=== PATIENT | female | born 1945 | race Hispanic/Latino ===

== ENCOUNTER 2016-06-01 17:47 | Emergency (ER) | payer MEDICARE ==
--- NOTE | 2016-06-01 19:43 | Emergency Department Report ---
HPI - General Chief Complaint: Fall Time Seen by Provider: 06/01/16 19:21 - HPI HPI: Room 25 The patient is a 70-year-old female presenting with a chief complaint of fall. The patient lives at home alone but has a [employer] alert necklace. The patient states today while standing up she continued to fall forward and fell to the ground. Patient complains of "lumps" in the back of her head. Patient denies loss of consciousness. Patient complains of a mild headache. Patient denies any other pain outside of her head. Patient states she feels a little sleepy. The patient gives her headache score of 4/10. The patient's daughter states she received a call from [employer] stating that the patient had fallen Location: Head Duration: Constant times today Quality: Headache Severity: 4/10 Modifying factors: [see above] Context: [see above] Mode of transportation: [not driving] ED Past Medical Hx - Past Medical History Previous Medical History?: Yes Hx Hypertension: Yes Hx Psychiatric Treatment: Yes (depression) Hx COPD: Yes Additional medical history: GERD, peripheral vascular disease - Surgical History Past Surgical History?: No Additional Surgical History: Abdominal vascular stenting. Cataract surgery, retinal tear repair, hysterectomy - Family History Family history: no significant - Social History Smoking Status: Former Smoker (none since 2008) Substance Use Type: None - Medications Home Medications: Home Medications Medication Instructions Recorded Confirmed Last Taken Type ALBUTEROL Inhaler [Proair] 2 puff IH QID PRN 06/01/16 06/01/16 Unknown History ALBUTEROL NEB's [Proventil] 2.5 mg IH TID PRN 06/01/16 06/01/16 Unknown History ALPRAZolam [Xanax TAB] 1 mg PO BID 06/01/16 06/01/16 Unknown History ARIPiprazole [Abilify TAB] 20 mg PO DAILY 06/01/16 06/01/16 Unknown History AtorvaSTATin [Lipitor] 40 mg PO QHS 06/01/16 06/01/16 Unknown History Cholecalciferol Vit D3 [Vitamin D3] 1,000 unit PO QDAY 06/01/16 06/01/16 Unknown History Escitalopram [Lexapro] 20 mg PO DAILY 06/01/16 06/01/16 Unknown History Fluticasone/Salmeterol [Advair 1 puff IH BID 06/01/16 06/01/16 Unknown History Diskus 250-50 mcg] Furosemide [Lasix TAB] 40 mg PO QDAY 06/01/16 06/01/16 Unknown History Gabapentin [Neurontin] 600 mg PO QPM 06/01/16 06/01/16 Unknown History HYDROcodone/APAP 10-325 [[place] 1 each PO BID PRN 06/01/16 06/01/16 Unknown History 10/325] Levothyroxine [Synthroid] 75 mcg PO QAM 06/01/16 06/01/16 Unknown History Meclizine [Antivert] 25 mg PO TID PRN #20 tablet 06/01/16 Unknown Rx Metoprolol [Lopressor] 100 mg PO DAILY 06/01/16 06/01/16 Unknown History Multivitamin Tab [Multiple Vitamin 1 each PO QDAY 06/01/16 06/01/16 Unknown History TAB (Theragran)] Omeprazole Magnesium [PriLOSEC Otc] 20 mg PO QDAY 06/01/16 06/01/16 Unknown History Oxybutynin [Ditropan] 5 mg PO TID 06/01/16 06/01/16 Unknown History Potassium Chloride [Klor-Con 10] 10 meq PO DAILY 06/01/16 06/01/16 Unknown History Quetiapine Fumarate [Seroquel] 100 mg PO QHS 06/01/16 06/01/16 Unknown History ED Review of Systems ROS: Stated complaint: FALL Other details as noted in HPI Comment: All other systems reviewed and negative Constitutional: denies: chills, fever Eyes: denies: eye pain, eye discharge, vision change ENT: denies: ear pain, throat pain Respiratory: denies: cough, shortness of breath, wheezing Cardiovascular: denies: chest pain, palpitations Endocrine: no symptoms reported Gastrointestinal: denies: abdominal pain, nausea, diarrhea Genitourinary: denies: urgency, dysuria, discharge Musculoskeletal: denies: back pain, joint swelling, arthralgia Skin: denies: rash, lesions Neurological: headache Psychiatric: denies: anxiety, depression Hematological/Lymphatic: denies: easy bleeding, easy bruising Physical Exam - Physical Exam Vital Signs: Vital Signs 06/01/16 06/01/16 18:25 19:12 Temperature 98.3 F Pulse Rate 67 66 Respiratory 18 16 Rate Blood Pressure 133/74 122/49 [Left] O2 Sat by Pulse 99 96 Oximetry Physical Exam: GENERAL: The patient is well-developed well-nourished female lying on stretcher not appearing to be in acute distress. [] HEENT: Normocephalic. Atraumatic. Extraocular motions are intact. Patient has moist mucous membranes. NECK: Supple. Trachea midline. No axial step off CHEST/LUNGS: Clear to auscultation. There is no respiratory distress noted. HEART/CARDIOVASCULAR: Regular. There is no tachycardia. There is no gallop rub or murmur. ABDOMEN: Abdomen is soft, with mild discomfort to palpation left lower quadrant. Patient has normal bowel sounds. There is no abdominal distention. SKIN: There is no rash. There is no edema. There is no diaphoresis. NEURO: The patient is awake, alert, and oriented. The patient is cooperative. The patient has no focal neurologic deficits. The patient has normal speech. Cranial nerves II through XII grossly intact, no drift. [place] 5+/5 bilaterally MUSCULOSKELETAL: There is tenderness palpation of the left ankle. There is no tenderness to palpation of the right lower extremity or bilateral upper extremities. There is no evidence of acute injury. ED Course Vital Signs 06/01/16 06/01/16 18:25 19:12 Temperature 98.3 F Pulse Rate 67 66 Respiratory 18 16 Rate Blood Pressure 133/74 122/49 [Left] O2 Sat by Pulse 99 96 Oximetry - Reevaluation(s) Reevaluation #1: 06/01/16 23:55 Patient not orthostatic. Patient improved after meclizine. Ambulates around the ED without complaint. Patient currently asymptomatic. Daughter states she is taking the patient home with her [facility] ED Medical Decision Making - Lab Data Result diagrams: 06/01/16 19:47 06/01/16 19:47 Laboratory Tests 06/01/16 06/01/16 19:47 19:47 WBC 7.1 RBC 4.15 Hgb 12.5 Hct 37.6 MCV 91 MCH 30 MCHC 33 RDW 13.8 Plt Count 155 Lymph % (Auto) 23.0 [place] % (Auto) 8.2 H Eos % (Auto) 4.4 H Baso % (Auto) 0.9 Lymph # 1.6 [place] # 0.6 Eos # 0.3 Baso # 0.1 Seg Neutrophils % 63.5 Seg Neutrophils # 4.5 Sodium 143 Potassium 4.2 Chloride 103.0 Carbon Dioxide 28 Anion Gap 16 BUN 16 Creatinine 1.0 Estimated GFR 55 BUN/Creatinine Ratio 16.00 Glucose 90 Calcium 8.8 Total Creatine Kinase 75 CK-MB (CK-2) 1.7 CK-MB (CK-2) Rel Index 2.2 Troponin T < 0.010 - EKG Data -: EKG Interpreted by Me EKG shows normal: sinus rhythm Rate: normal - EKG Data When compared to previous EKG there are: previous EKG unavailable - Radiology Data Radiology results: report reviewed (CT head, CT abdomen and pelvis, CT cervical spine), image reviewed (left ankle x-ray, CT head, CT abdomen and pelvis, CT cervical spine) interpreted by me: Left ankle x-ray-no acute fracture CT head (read by radiologist)-no acute intracranial process CT cervical spine (read by radiologist)-no acute cervical process CT abdomen and pelvis (read by radiologist)-no acute intra-abdominal process - Differential Diagnosis closed head injury, ICH, tibial fracture, diverticulitis Critical care attestation.: If time is entered above; I have spent that time in minutes in the direct care of this critically ill patient, excluding procedure time. ED Disposition Clinical Impression: Vertigo, Closed head injury Disposition: DISCHARGED TO HOME OR SELFCARE Is pt being admited?: No Does the pt Need Aspirin: No Condition: Stable Instructions: Vertigo (ED) Additional Instructions: Return to the emergency department immediately should you develop worsening symptoms, fever, inability to tolerate food or liquid or any other concerns. Prescriptions: Meclizine [Antivert] 25 mg PO TID PRN #20 tablet PRN Reason: Vertigo Referrals: PRIMARY CARE, [Primary Care Provider] - 3-5 Days BALBIR TO MD [Staff Physician] - 2-3 Days (Dr. To is a neurologist. Please follow up with him for further evaluation) Time of Disposition: 23:58
[2016-06-01 20:05] LABS: Basophils % (Auto) 0.9 % (0.0-1.8); Eosinophils % (Auto) 4.4 % (0.0-4.3); Hematocrit 37.6 % (30.3-42.9); Hemoglobin 12.5 gm/dl (10.1-14.3); Mean Corpuscular HGB Conc 33 % (30-34); Mean Corpuscular Hemoglobin 30 pg (28-32); Mean Corpuscular Volume 91 fl (79-97); Platelet Count 155 K/mm3 (140-440); Red Blood Count 4.15 M/mm3 (3.65-5.03); Red Cell Distribution Width 13.8 % (13.2-15.2); White Blood Count 7.1 K/mm3 (4.5-11.0)
[2016-06-01 20:32] LABS: Creatine Kinase MB 1.7 ng/mL (0.0-4.0)
[2016-06-01 20:33] LABS: Anion Gap 16 mmol/L; Blood Urea Nitrogen 16 mg/dL (7-17); Calcium 8.8 mg/dL (8.4-10.2); Carbon Dioxide 28 mmol/L (22-30); Creatine Kinase 75 units/L (30-135); Glucose 90 mg/dL (65-100); Potassium 4.2 mmol/L (3.6-5.0); Sodium 143 mmol/L (137-145)
[2016-06-01] MEDS ORDERED: NACL ONE (20:38)
--- NOTE | 2016-06-01 21:49 | Cat Scan Report ---
FINAL REPORT EXAM: CT HEAD/BRAIN WO CON HISTORY: headache after fall TECHNIQUE: Standard unenhanced CT of the head at 5.0 millimeter axial increments. PRIORS: None. FINDINGS: The ventricular system is normal in size and configuration. There is no evidence for parenchymal volume loss. There is no evidence for mass lesion, mass effect, midline shift, acute intracranial hemorrhage, or acute ischemia/ infarction. No evidence for acute skull fracture is seen. No abnormality in the overlying scalp soft tissues is seen. Visualized paranasal sinuses demonstrate complete opacification of the left maxillary sinus. IMPRESSION: No acute intracranial process noted. Opacification of the left maxillary sinus suggests chronic sinusitis.
--- NOTE | 2016-06-01 21:54 | Cat Scan Report ---
FINAL REPORT EXAM: CT CERVICAL SPINE WO CON HISTORY: headache after fall TECHNIQUE: Standard CT cervical spine obtained at 1.25 millimeter axial increments. Coronal and sagittal reconstruction was also performed. PRIORS: None. FINDINGS: The vertebral bodies are intact. There is no evidence for acute fracture. There is no evidence for paravertebral soft tissue swelling. Alignment is maintained. Large spurs are present off the anterior aspect of the thoracic spine particularly at the C7-T1 level. There has been congenital fusion to of C5 through C7. Extensive facet joint hypertrophic bony changes are present bilaterally in the lower half of the cervical spine. IMPRESSION: No acute abnormality of the cervical spine. Congenital fusion of C5 through C7. Degenerative changes present as noted above.
--- NOTE | 2016-06-01 22:11 | Cat Scan Report ---
FINAL REPORT EXAM: CT ABDOMEN PELVIS W CON HISTORY: left-sided abdominal pain after fall TECHNIQUE: Standard enhanced CT of the abdomen and pelvis. Delayed imaging through the kidneys and bladder was obtained. Coronal and sagittal reconstruction was also performed. Contrast: 100 mL Omnipaque 300 given IV. PRIORS: None. FINDINGS: Within the abdomen, the liver, spleen, pancreas, gallbladder, adrenal glands, and kidneys are unremarkable. No evidence for retroperitoneal or pelvic lymphadenopathy is seen. Moderate stool is present throughout the colon. The small bowel loops have normal caliber. No soft tissue mass, fluid collection, inflammatory change, or free air is seen within the abdomen or pelvis. The appendix is normal. Within the pelvis, the bladder is overly distended. The uterus is surgically removed. There is an bi-iliac venous graft in place attached to the inferior vena cava. There is a partially calcified 2.4 x 1.7 cm (series 4, axial image 62) focus along the left iliac chain, probably a calcified lymph node or unresolved seroma from prior surgery. Images through the upper abdomen include the lung bases which demonstrate emphysematous bullous changes in the left base. Linear scarring in the right base medially is seen. Bony structures show no focal abnormalities. On L4 and L4 on L5, mild and likely degenerative. There is severe degenerative disc narrowing at L3 through L5 with retrolisthesis of L3 incidental spina bifida occulta at S1 is noted. Degenerative changes throughout the lower lumbar spine are seen. IMPRESSION: 1. no acute intra-abdominal process noted. 2. Bladder is overly distended 3. Bi-iliac endovascular venous graft in place attached to the inferior vena cava
[2016-06-01] MEDS ORDERED: ANTIVERT PO ONE (22:59)
[2016-06-01 23:48] VITALS: BP 115/64
--- NOTE | 2016-06-02 08:20 | XRay Report ---
LEFT ANKLE: The bones are well mineralized with normal bony contours and joint alignment. No fractures or destructive changes are noted and the adjacent soft tissues are normal. IMPRESSION: Normal study.
== END 2016-06-02 01:07 | disposition home or self-care (01) ==
LOC: ED 17:47
DX: S09.90XA Unspecified injury of head, initial encounter (principal); R42 Dizziness and giddiness; I10 Essential (primary) hypertension; F32.9 Major depressive disorder, single episode, unspecified; J44.9 Chronic obstructive pulmonary disease, unspecified; K21.9 Gastro-esophageal reflux disease without esophagitis; Z87.891 Personal history of nicotine dependence; W19.XXXA Unspecified fall, initial encounter; Y93.89 Activity, other specified; Y99.9 Unspecified external cause status; Y92.89 Other specified places as the place of occurrence of the external cause
CPT/HCPCS: 36415; 70450; 72125; 73610; 74177; 80048; 82550; 82553; 84484; 85025; 93005; 93010; 99285; Q9967

== ENCOUNTER 2018-04-18 09:03 | Inpatient (IN) | payer MEDICARE ==
--- NOTE | 2018-04-18 10:52 | Emergency Department Report ---
ED Neuro Deficit HPI - General Chief Complaint: Dizziness Stated Complaint: DIZZY Time Seen by Provider: 04/18/18 10:21 Source: patient Mode of arrival: Stretcher Limitations: No Limitations - History of Present Illness Initial Comments: Mrs. Catalan is a 72-year-old female with history of COPD, hypertension, dyslipidemia, GERD, hypothyroidism, peripheral vascular disease, depression and TIA who awakened this morning with room spinning sensation and difficulty walking this morning. When she awakened, her head felt funny. She had difficulty walking. She stated that she walked in a zig zag fashion. She called 911 because she was concerned for stroke. She did have paralysis or speech difficulty. She takes baby aspirin daily. Yesterday underwent a vein procedure by surgeon in outpatient setting. -: This morning History of same: Yes Place: home Severity: moderate Improves With: rest On Anticoagulants: No Context: other (awakened this morning with symptoms, last normal last night.) - Related Data Home Medications: Home Medications Medication Instructions Recorded Confirmed Last Taken ARIPiprazole [Abilify TAB] 20 mg PO DAILY 06/01/16 04/18/18 10/19/17 AtorvaSTATin [Lipitor] 40 mg PO QHS 06/01/16 04/18/18 10/19/17 Furosemide [Lasix TAB] 40 mg PO QDAY 06/01/16 04/18/18 10/19/17 Metoprolol [Lopressor TAB] 100 mg PO DAILY 06/01/16 04/18/18 10/19/17 Multivitamin Tab [Multiple Vitamin 1 each PO QDAY 06/01/16 04/18/18 10/19/17 TAB (Theragran)] Oxybutynin [Ditropan] 5 mg PO TID 06/01/16 04/18/18 10/19/17 Potassium Chloride [Klor-Con 10] 20 meq PO DAILY 06/01/16 04/18/18 10/19/17 Ergocalciferol [Vitamin D2] 1 cap PO QWEEK 04/18/18 04/18/18 Unknown Sertraline [Zoloft] 50 mg PO QDAY 04/18/18 04/18/18 Unknown Topiramate [Topamax TAB] 50 mg PO BID 04/18/18 04/18/18 Unknown Previous Rx's Medication Instructions Recorded Last Taken Type Aspirin [Aspirin TAB] 325 mg PO QDAY #30 tablet 10/22/17 Unknown Rx Allergies/Adverse Reactions: Allergies Allergy/AdvReac Type Severity Reaction Status Date / Time No Known Allergies Allergy Verified 04/18/18 09:35 ED Review of Systems ROS: Stated complaint: DIZZY Other details as noted in HPI Comment: All other systems reviewed and negative Constitutional: denies: chills, fever Respiratory: denies: cough, shortness of breath, wheezing Cardiovascular: denies: chest pain, palpitations Endocrine: no symptoms reported Gastrointestinal: denies: abdominal pain, nausea, diarrhea Musculoskeletal: denies: back pain Skin: denies: rash, lesions Neurological: denies: headache, weakness, paresthesias ED Past Medical Hx - Past Medical History Previous Medical History?: Yes Hx Hypertension: Yes Hx Heart Attack/AMI: No Hx Congestive Heart Failure: No Hx Arthritis: Yes Hx Headaches / Migraines: Yes Hx Psychiatric Treatment: Yes (depression) Hx COPD: Yes Hx HIV: No Additional medical history: GERD, peripheral vascular disease - Surgical History Past Surgical History?: Yes Hx Open Heart Surgery: No Additional Surgical History: Abdominal vascular stenting. Cataract surgery, retinal tear repair, hysterectomy - Social History Smoking Status: Never Smoker Substance Use Type: None - Medications Home Medications: Home Medications Medication Instructions Recorded Confirmed Last Taken Type ARIPiprazole [Abilify TAB] 20 mg PO DAILY 06/01/16 04/18/18 10/19/17 History AtorvaSTATin [Lipitor] 40 mg PO QHS 06/01/16 04/18/18 10/19/17 History Furosemide [Lasix TAB] 40 mg PO QDAY 06/01/16 04/18/18 10/19/17 History Metoprolol [Lopressor TAB] 100 mg PO DAILY 06/01/16 04/18/18 10/19/17 History Multivitamin Tab [Multiple Vitamin 1 each PO QDAY 06/01/16 04/18/18 10/19/17 History TAB (Theragran)] Oxybutynin [Ditropan] 5 mg PO TID 06/01/16 04/18/18 10/19/17 History Potassium Chloride [Klor-Con 10] 20 meq PO DAILY 06/01/16 04/18/18 10/19/17 History Aspirin [Aspirin TAB] 325 mg PO QDAY #30 tablet 10/22/17 04/18/18 Unknown Rx Ergocalciferol [Vitamin D2] 1 cap PO QWEEK 04/18/18 04/18/18 Unknown History Sertraline [Zoloft] 50 mg PO QDAY 04/18/18 04/18/18 Unknown History Topiramate [Topamax TAB] 50 mg PO BID 04/18/18 04/18/18 Unknown History ED Neuro Physical Exam - General Limitations: No Limitations General appearance: alert, in no apparent distress, other (elderly, slow to give history, frail) Suspected Stroke: Yes - Head Head exam: Present: atraumatic, normocephalic - Eye Eye exam: Present: normal appearance - ENT ENT exam: Present: mucous membranes moist - Neck Neck exam: Present: normal inspection, full ROM - Respiratory Respiratory exam: Present: normal lung sounds bilaterally. Absent: respiratory distress, wheezes, rales, rhonchi - Cardiovascular Cardiovascular Exam: Present: regular rate, normal rhythm, normal heart sounds. Absent: systolic murmur, diastolic murmur, rubs, gallop - GI/Abdominal GI/Abdominal exam: Present: soft, normal bowel sounds. Absent: distended, tenderness, guarding, rebound - Extremities Exam Extremities exam: Present: normal inspection - Back Exam Back exam: Present: normal inspection - Neurological Exam Neurological exam: Present: alert, oriented X3 - NIHSS Assessment Interval: Baseline 1a. Level of Consciousness: alert/keenly responsive 1b. LOC Questions: answers both correctly 1c. LOC Commands: performs tasks correctly 2. Best Gaze: normal 3. Visual: no visual loss 4. Facial Palsy: normal symmetrical movement 5b. Motor Arm Right: no drift 5a. Motor Arm Left: no drift 6a. Motor Leg Left: no drift 6b. Motor Leg Right: no drift 7. Limb Ataxia: absent 8. Sensory: normal 9. Best Language: no aphasia 10. Dysarthria: normal 11. Extinction/Inattention: no abnormality Total Score: 0 Stroke Severity: No Stroke Symptoms - Psychiatric Psychiatric exam: Present: normal affect, normal mood - Skin Skin exam: Present: warm, dry, intact, normal color. Absent: rash ED Course Vital Signs 04/18/18 09:36 Temperature 97.8 F Pulse Rate 64 Respiratory 16 Rate Blood Pressure 129/43 O2 Sat by Pulse 96 Oximetry - Lab Data Result diagrams: 04/18/18 11:17 04/18/18 11:17 Lab Results 04/18/18 04/18/18 04/18/18 Range/Units 11:17 11:17 11:17 WBC 5.9 (4.5-11.0) K/mm3 RBC 4.12 (3.65-5.03) M/mm3 Hgb 12.2 (10.1-14.3) gm/dl Hct 37.1 (30.3-42.9) % MCV 90 (79-97) fl MCH 30 (28-32) pg MCHC 33 (30-34) % RDW 13.8 (13.2-15.2) % Plt Count 147 (140-440) K/mm3 Lymph % (Auto) 26.1 (13.4-35.0) % [place] % (Auto) 6.7 (0.0-7.3) % Eos % (Auto) 2.6 (0.0-4.3) % Baso % (Auto) 1.3 (0.0-1.8) % Lymph # 1.5 (1.2-5.4) K/mm3 [place] # 0.4 (0.0-0.8) K/mm3 Eos # 0.2 (0.0-0.4) K/mm3 Baso # 0.1 (0.0-0.1) K/mm3 Seg Neutrophils % 63.3 (40.0-70.0) % Seg Neutrophils # 3.7 (1.8-7.7) K/mm3 PT 13.7 (12.2-14.9) Sec. INR 0.99 (0.87-1.13) APTT 31.0 (24.2-36.6) Sec. Sodium 142 (137-145) mmol/L Potassium 4.8 (3.6-5.0) mmol/L Chloride 102.9 (98-107) mmol/L Carbon Dioxide 27 (22-30) mmol/L Anion Gap 17 mmol/L BUN 12 (7-17) mg/dL Creatinine 1.0 (0.7-1.2) mg/dL Estimated GFR 55 ml/min BUN/Creatinine Ratio 12 % Glucose 99 (65-100) mg/dL Calcium 9.2 (8.4-10.2) mg/dL Total Bilirubin 0.30 (0.1-1.2) mg/dL AST 19 (5-40) units/L ALT 12 (7-56) units/L Alkaline Phosphatase 122 (35-129) units/L Troponin T < 0.010 (0.00-0.029) ng/mL Total Protein 7.6 (6.3-8.2) g/dL Albumin 3.7 L (3.9-5) g/dL Albumin/Globulin Ratio 0.9 % - EKG Data EKG shows normal: sinus rhythm, axis, intervals, QRS complexes, ST-T waves Rate: normal Interpretation: normal EKG - Medical Decision Making Ms. Catalan presents with dizziness, vertigo type spinning and difficulty walking. She has history of TIA. She was admitted last year for TIA evaluation Labs normal yesterday evening. She is currently without neurological deficit. Differential diagnoses includes: TIA, benign positional vertigo, infection, dehydration, polypharmacy, TPA not indicated due to resolved symptoms and possibility of secondary etiology. - Thrombolytic Inclusion/Exclusion Thrombolytic Contraindications: Rapidily Improving s/s Critical care attestation.: If time is entered above; I have spent that time in minutes in the direct care of this critically ill patient, excluding procedure time. ED Disposition Clinical Impression: TIA (transient ischemic attack), Vertigo, Ataxia Disposition: 09 OP ADMIT IP TO THIS HOSP Is pt being admited?: Yes Does the pt Need Aspirin: Yes Condition: Stable Referrals: PRIMARY CARE, [Primary Care Provider] - 3-5 Days
--- NOTE | 2018-04-18 11:40 | Cat Scan Report ---
CT HEAD WITHOUT CONTRAST: HISTORY: Stroke symptoms. TECHNIQUE: Sequential 2.5mm CT images. COMPARISON: 10/20/17. FINDINGS: Cerebral Parenchyma: Within normal limits. Cerebellum: Within normal limits. Brainstem: Within normal limits. Ventricles: Normal. [place]: Normal. Extra-axial spaces: Normal. Basal Cisterns: Normal. Intracranial Hemorrhage: None. Midline Shift: None. Calvarium: Normal. Sinuses: Severe mucoperiosteal thickening is present in the visualized left maxillary sinus. Mastoid Air Cells: Normal. Visualized Orbits: Normal. IMPRESSION: Cranial CT scan within normal limits. Chronic left maxillary sinus disease.
[2018-04-18 11:43] LABS: Basophils # (Auto) 0.1 K/mm3 (0.0-0.1); Basophils % (Auto) 1.3 % (0.0-1.8); Eosinophils # (Auto) 0.2 K/mm3 (0.0-0.4); Eosinophils % (Auto) 2.6 % (0.0-4.3); Hematocrit 37.1 % (30.3-42.9); Hemoglobin 12.2 gm/dl (10.1-14.3); Lymphocytes # (Auto) 1.5 K/mm3 (1.2-5.4); Lymphocytes % (Auto) 26.1 % (13.4-35.0); Mean Corpuscular HGB Conc 33 % (30-34); Mean Corpuscular Volume 90 fl (79-97); Monocytes # (Auto) 0.4 K/mm3 (0.0-0.8); Monocytes % (Auto) 6.7 % (0.0-7.3); Platelet Count 147 K/mm3 (140-440); Red Blood Count 4.12 M/mm3 (3.65-5.03); Red Cell Distribution Width 13.8 % (13.2-15.2)
[2018-04-18 11:54] LABS: INR 0.99 (0.87-1.13)
[2018-04-18 12:09] LABS: Alanine Aminotransferase 12 units/L (7-56); Albumin 3.7 g/dL (3.9-5); BUN/Creatinine Ratio 12; Blood Urea Nitrogen 12 mg/dL (7-17); Calcium 9.2 mg/dL (8.4-10.2); Hemolysis Index 58
[2018-04-18] MEDS ORDERED: BABY ASPIRIN PO ONE (13:05)
--- NOTE | 2018-04-18 13:10 | XRay Report ---
AP CHEST: HISTORY: Dyspnea The lungs are hyperinflated consistent with advanced emphysema. No obvious infiltrate, pulmonary mass or pleural effusion. Heart size and pulmonary vascularity are within normal limits. No significant change since 10/20/17. IMPRESSION: Emphysema.
[2018-04-18 13:31] LABS: Bilirubin,Urine NEG (Negative); Blood,Urine NEG (Negative); Color,Urine Yellow (Yellow); Mucus,Urine FEW /HPF; Protein,Urine <15 mg/dL mg/dL (Negative); Urobilinogen,Urine < 2.0 mg/dL (<2.0)
--- NOTE | 2018-04-18 14:12 | History and Physical Report ---
History of Present Illness Chief complaint: I felt weak, and i could not walk, and i couldnt talk History of present illness: 72 YO Female with COPD, HTN, OA, HLD, GERD, Hypothyroidism, PVD, Depression, CVA presents to ED for evaluation. Pt was in her usual state of health at bedtime around 2100hrs. Pt awoke from sleep this morning and experienced leg weakness resulting in unsteady gait, as well as slurred speech. EMS was notified, and upon arrival the patient was found to have a neurologic deficit. A code stroke was called, and the patient transported to [facility]. Pt seen and evaluated in ED and found to have symptoms consistent with CVA. Pt outside therapeutic window for TPA at time of my evaluation. Pt admitted to telemetry, and initiated on CVA protocol.Neurology consulted. Pt denies fever, chills, CP, Palpitations, NVD, Trauma, Skin rash, vertigo, or recent ill contacts. Past History Past Medical History: COPD, GERD, hypertension, hyperlipidemia, hypothyroidism, PVD, stroke Past Surgical History: cataract removal, hysterectomy, Other (Eye, Vascular stent placement) Social history: . denies: smoking, alcohol abuse, prescription drug abuse Family history: CAD, hypertension Medications and Allergies Allergies Allergy/AdvReac Type Severity Reaction Status Date / Time No Known Allergies Allergy Verified 04/18/18 09:35 Home Medications Medication Instructions Recorded Confirmed Last Taken Type ARIPiprazole [Abilify TAB] 20 mg PO DAILY 06/01/16 04/18/18 10/19/17 History AtorvaSTATin [Lipitor] 40 mg PO QHS 06/01/16 04/18/18 10/19/17 History Furosemide [Lasix TAB] 40 mg PO QDAY 06/01/16 04/18/18 10/19/17 History Metoprolol [Lopressor TAB] 100 mg PO DAILY 06/01/16 04/18/18 10/19/17 History Multivitamin Tab [Multiple Vitamin 1 each PO QDAY 06/01/16 04/18/18 10/19/17 History TAB (Theragran)] Oxybutynin [Ditropan] 5 mg PO TID 06/01/16 04/18/18 10/19/17 History Potassium Chloride [Klor-Con 10] 20 meq PO DAILY 06/01/16 04/18/18 10/19/17 History Aspirin [Aspirin TAB] 325 mg PO QDAY #30 tablet 10/22/17 04/18/18 Unknown Rx Ergocalciferol [Vitamin D2] 1 cap PO QWEEK 04/18/18 04/18/18 Unknown History Sertraline [Zoloft] 50 mg PO QDAY 04/18/18 04/18/18 Unknown History Topiramate [Topamax TAB] 50 mg PO BID 04/18/18 04/18/18 Unknown History Review of Systems Constitutional: no weight loss, no weight gain, no fever Ears, nose, mouth and throat: no ear pain, no ear discharge, no decreased hear ing Breasts: no change in shape, no swelling, no mass Cardiovascular: no chest pain, no orthopnea, no palpitations, no edema Respiratory: no cough, no cough with sputum, no excessive sputum, no hemoptysis Gastrointestinal: no nausea, no vomiting, no diarrhea, no constipation Genitourinary Female: no pelvic pain, no flank pain, no menorrhagia, no dysuria Rectal: no pain, no incontinence, no bleeding Musculoskeletal: no neck stiffness, no shooting arm pain, no low back pain, no leg numbness/tingling Integumentary: no rash, no redness, no wounds, no boils Neurological: weakness, numbness, lack of coordination, change in speech, balance difficulties, gait dysfunction, motor disturbance, no head injury, no paralysis Psychiatric: no anxiety, no memory loss, no change in appetite Endocrine: no cold intolerance, no heat intolerance, no excessive thirst, no polyuria Hematologic/Lymphatic: no easy bruising, no lymphadenopathy Allergic/Immunologic: no urticaria, no anaphylaxis Exam - Constitutional Vitals: Temp Pulse Resp BP Pulse Ox 97.8 F 73 16 135/71 93 04/18/18 09:36 04/18/18 14:06 04/18/18 14:06 04/18/18 14:06 04/18/18 14:06 General appearance: Present: mild distress - EENT Eyes: Present: PERRL ENT: hearing intact, clear oral mucosa - Neck Neck: Present: supple, normal ROM - Respiratory Respiratory effort: normal Respiratory: bilateral: CTA - Cardiovascular Heart Sounds: Present: S1 & S2. Absent: rub, click - Extremities Extremities: pulses symmetrical, No edema Peripheral Pulses: within normal limits - Abdominal General gastrointestinal: Present: soft, non-tender, non-distended, normal bowel sounds Female genitourinary: Present: normal - Integumentary Integumentary: Present: clear, warm, dry - Musculoskeletal Musculoskeletal: generalized weakness - Psychiatric Psychiatric: appropriate mood/affect, intact judgment & insight - Neurologic Neurologic: CNII-XII intact, moves all extremities, no gait normal Results - Labs CBC & Chem 7: 04/18/18 11:17 04/18/18 11:17 Labs: Abnormal lab results 04/18/18 04/18/18 Range/Units 11:17 14:08 POC Glucose 129 H (70-105) Albumin 3.7 L (3.9-5) g/dL Assessment and Plan - Patient Problems (1) CVA (cerebral vascular accident) Current Visit: Yes Status: Acute Qualifiers: Precerebral and cerebral artery: middle cerebral artery Laterality of affected vessel: unspecified Plan to address problem: Admit to telemetry: CT head, MRI Brain, MRA Brain, Echo, Carotid Doppler, Antiplatelet therapy, lipid panel, Statin therapy, PT/OT/ Speech therapy, Neuro checks. (2) Hypothyroid Current Visit: Yes Status: Acute Qualifiers: Hypothyroidism type: acquired Qualified Code(s): E03.9 - Hypothyroidism, unspecified Plan to address problem: thyroid panel, (3) HTN (hypertension) Current Visit: Yes Status: Acute Qualifiers: Hypertension type: essential hypertension Qualified Code(s): I10 - Essential (primary) hypertension Plan to address problem: Monitor bp q shift, continue medical management (4) COPD (chronic obstructive pulmonary disease) Current Visit: Yes Status: Acute Plan to address problem: supplemental oxygen, nebulizer therapy, pulse oximetry, chest x ray (5) DVT prophylaxis Current Visit: Yes Status: Acute Plan to address problem: SCD to BLE while in bed
[2018-04-18] MEDS ORDERED: DULCOLAX PR PRN (14:15)
[2018-04-18] MEDS ORDERED: PHENERGAN PR PRN (14:15)
[2018-04-18] MEDS ORDERED: REGLAN PO PRN (14:15)
[2018-04-18] MEDS ORDERED: SODIUM CHLORIDE FLUSH SYRINGE 10 ML IV PRN (14:15)
[2018-04-18] MEDS ORDERED: MILK OF MAGNESIA PO PRN (14:15)
[2018-04-18] MEDS ORDERED: ZOFRAN IV PRN (14:15)
--- NOTE | 2018-04-18 17:39 | Magnetic Resonance Report ---
FINAL REPORT EXAM: MR BRAIN WO CON HISTORY: stroke severe dizziness TECHNIQUE: T1 and T2 weighted sagittal, axial, coronal and diffusion-weighted images of the brain we re obtained. Comparison: MRA brain also performed today, MRI and MRA brain dated October 21, [address] date d October 20, 2017 FINDINGS: Visualization detail on some of the sequences is limited by motion artifact. The the the the There are a few small scattered T2 signal abnormalities in the subcortical and deep white matter of t he cerebral hemispheres bilaterally that are nonspecific in appearance but most likely represent area s of chronic post ischemic demyelination/small vessel disease. These are not unexpected at this patie nt's age. There is a chronic lacunar infarct in the darby on the left similar in appearance to the previous stud y. There is no diffusion abnormality to suggest the presence of acute infarct. There is no evidence of intracranial hemorrhage nor intracranial mass. The ventricles are normal size. Expected flow void is demonstrated within the major intracranial vessels. There is the appearance of an approximately 7 millimeter aneurysm arising from the junction of the ca vernous and supraclinoid segments of the right internal carotid artery as was demonstrated on the pre vious MRI brain and MRA brain dated October 21, 2017. The extracranial structures are notable for abnormal signal filling the left maxillary sinus similar in appearance to the previous studies consistent with chronic sinusitis. There is evidence of mucoper iosteal change. The craniocervical junction is unremarkable in appearance IMPRESSION: 1. Chronic lacunar infarct in the darby on the left. No evidence of acute infarct. 2. Appearance of an approximately 7 millimeter aneurysm arising from the junction of the cavernous an d supraclinoid segments of the right internal carotid artery as was demonstrated on the previous MRI brain and MRA brain dated October 21, 2017. 3. Left maxillary sinus disease with evidence of a component of chronic sinusitis.. The finding of an aneurysm arising from the right internal carotid artery was reported to the patient 's nurse, COLEMAN Fung , at 5:35 p.m. April 18, 2018. Evaluation for interval change is significantly limited by motion artifact on the present MRI brain a nd MRA brain.
--- NOTE | 2018-04-18 18:09 | Magnetic Resonance Report ---
FINAL REPORT EXAM: MR MRA/MRV HEAD WO CON HISTORY: stroke TECHNIQUE: 3D [id number] MRA of the brain with maximum intensity projection images obtained. Comparison: MRI brain also performed today and MRA brain dated October 21, 2017 FINDINGS: This study is significantly degraded by motion artifact which significantly limits the diagnostic jo ann lity. There is demonstration of what appears to be an approximately 7 millimeter aneurysm arising from the junction of the cavernous and supraclinoid segments of the right internal carotid artery. This was al so demonstrated on the previous MRA brain dated October 21, 2017. IMPRESSION: 1. Study significantly degraded by motion artifact. 2. Appearance of an aneurysm arising from the junction of the cavernous and supraclinoid segments of the right internal carotid artery as was demonstrated on the previous MRA brain dated October 21 8. This finding was reported to the patient's nurse, COLEMAN Fung , at 5:35 p.m. April 18, 2017. If there is no clinical contraindication, CT angiogram brain may be helpful for further evaluation.
--- NOTE | 2018-04-18 18:28 | Vascular Lab Report ---
FINAL REPORT EXAM: VL CAROTID DUPLEX BILAT HISTORY: stroke TECHNIQUE: Grayscale, color flow and Doppler waveform imaging of the cervical carotid and vertebral arteries was performed. Comparison: None FINDINGS: There is demonstration of antegrade flow in the cervical carotid and vertebral arteries bilaterally. There is demonstration of heterogeneous plaque formation in the proximal right internal carotid arter y. Peak systolic velocity in the right internal carotid artery is 95 centimeters/second and in the left internal carotid artery is 103 centimeters/second. Peak systolic ICA/CCA ratio on the right is 1.2 and on the left is 1.0 IMPRESSION: 1. Less than 50 percent stenosis in the proximal internal carotid arteries bilaterally. 2. Heterogeneous plaque formation proximal right internal carotid artery.
[2018-04-18] MEDS ORDERED: TOPAMAX PO SCH (22:00)
[2018-04-18] MEDS ORDERED: NON-FORMULARY (Topiramate [Topamax Tab] 50 MG) PO SCH (22:00)
[2018-04-18] MEDS: DITROPAN PO SCH (23:31)
[2018-04-18] MEDS: PEPCID PO SCH (23:32)
[2018-04-18] MEDS: TOPAMAX PO SCH (23:34)
[2018-04-19] MEDS: TYLENOL PO PRN ×2 (03:34→10:28)
[2018-04-19 08:14] LABS: Free T4 (Free Thyroxine) 1.12 ng/dL (0.76-1.46)
[2018-04-19] MEDS: DITROPAN PO SCH ×3 (08:40→22:10)
[2018-04-19] MEDS ORDERED: ASPIRIN PO SCH (10:00)
[2018-04-19] MEDS ORDERED: TOPAMAX PO SCH (10:00)
[2018-04-19] MEDS ORDERED: ARIPIPRAZOLE 20 MG PO SCH (10:00)
[2018-04-19] MEDS ORDERED: NON-FORMULARY (Potassium Chloride [Klor-Con 10] 20 MEQ) PO SCH (10:00)
[2018-04-19] MEDS: ABILIFY PO SCH (10:24)
[2018-04-19] MEDS: K-DUR PO SCH (10:25)
[2018-04-19] MEDS: THERAGRAN Tab PO SCH (10:25)
[2018-04-19] MEDS: PEPCID PO SCH ×2 (10:25→22:10)
[2018-04-19] MEDS: ASPIRIN PO SCH (10:25)
[2018-04-19] MEDS: TOPAMAX PO SCH ×2 (10:27→22:09)
[2018-04-19] MEDS: ZOLOFT PO SCH (10:28)
[2018-04-19] MEDS: LOPRESSOR PO SCH (10:39)
[2018-04-19] MEDS: LASIX PO SCH (10:39)
[2018-04-19 11:57] LABS: Chol/HDL Ratio 3.33 %
[2018-04-19] MEDS: XANAX PO SCH ×2 (14:56→22:10)
--- NOTE | 2018-04-19 17:29 | Consultation ---
History of Present Illness Consult date: 04/19/18 Chief complaint: Dizzy History of present illness: This is a 72 YO F who presented to the ED because of dizziness. Pt says she could walk and talk. [place] like things were spinning. Feels better now can move around fine. No recent illness or new meds. Also found an aneurysm on MRA in the intracranial carotid on the right. Past History Past Medical History: COPD, GERD, hypertension, hyperlipidemia, hypothyroidism, PVD, stroke Past Surgical History: cataract removal, hysterectomy, Other (Eye, Vascular stent placement) Social history: . denies: smoking, alcohol abuse, prescription drug abuse Family history: CAD, hypertension Medications and Allergies Allergies Allergy/AdvReac Type Severity Reaction Status Date / Time No Known Allergies Allergy Verified 04/18/18 09:35 Home Medications Medication Instructions Recorded Confirmed Last Taken Type ARIPiprazole [Abilify TAB] 20 mg PO DAILY 06/01/16 04/18/18 10/19/17 History AtorvaSTATin [Lipitor] 40 mg PO QHS 06/01/16 04/18/18 10/19/17 History Furosemide [Lasix TAB] 40 mg PO QDAY 06/01/16 04/18/18 10/19/17 History Metoprolol [Lopressor TAB] 100 mg PO DAILY 06/01/16 04/18/18 10/19/17 History Multivitamin Tab [Multiple Vitamin 1 each PO QDAY 06/01/16 04/18/18 10/19/17 History TAB (Theragran)] Oxybutynin [Ditropan] 5 mg PO TID 06/01/16 04/18/18 10/19/17 History Aspirin [Aspirin TAB] 325 mg PO QDAY #30 tablet 10/22/17 04/18/18 Unknown Rx Ergocalciferol [Vitamin D2] 1 cap PO QWEEK 04/18/18 04/18/18 Unknown History Sertraline [Zoloft] 50 mg PO QDAY 04/18/18 04/18/18 Unknown History Topiramate [Topamax TAB] 50 mg PO BID 04/18/18 04/18/18 Unknown History Active Meds: Active Medications Acetaminophen (Tylenol) 650 mg PO Q4H PRN PRN Reason: Pain, Mild (1-3) Last Admin: 04/19/18 10:28 Dose: 650 mg Documented by: Alprazolam (Xanax) 1 mg PO BID [facility] Last Admin: 04/19/18 14:56 Dose: 1 mg Documented by: Aripiprazole (Abilify) 20 mg PO QDAY [facility] Last Admin: 04/19/18 10:24 Dose: 20 mg Documented by: Aspirin (Aspirin) 325 mg PO QDAY [facility] Last Admin: 04/19/18 10:25 Dose: 325 mg Documented by: Atorvastatin Calcium (Lipitor) 40 mg PO QHS [facility] Last Admin: 04/18/18 23:32 Dose: 40 mg Documented by: Bisacodyl (Dulcolax) 10 mg [place] QDAY PRN PRN Reason: Constipation Ergocalciferol (Vitamin D2) 50,000 unit PO [facility] Famotidine (Pepcid) 20 mg PO BID [facility] Last Admin: 04/19/18 10:25 Dose: 20 mg Documented by: Furosemide (Lasix) 40 mg PO QDAY [facility] Last Admin: 04/19/18 10:39 Dose: 40 mg Documented by: Magnesium Hydroxide (Milk Of Magnesia) 30 ml PO Q4H PRN PRN Reason: Constipation Metoclopramide HCl (Reglan) 10 mg PO Q6H PRN PRN Reason: Nausea And Vomiting Metoprolol Tartrate (Lopressor) 100 mg PO DAILY [facility] Last Admin: 04/19/18 10:39 Dose: 100 mg Documented by: Multivitamins (Theragran Tab) 1 each PO QDAY [facility] Last Admin: 04/19/18 10:25 Dose: 1 each Documented by: Ondansetron HCl (Zofran) 4 mg IV Q8H PRN PRN Reason: Nausea And Vomiting Oxybutynin Chloride (Ditropan) 5 mg PO TID [facility] Last Admin: 04/19/18 14:56 Dose: 5 mg Documented by: Potassium Chloride (K-Dur) 20 meq PO QDAY [facility] Last Admin: 04/19/18 10:25 Dose: 20 meq Documented by: Promethazine HCl (Phenergan) 25 mg [place] Q6H PRN PRN Reason: Nausea And Vomiting Sertraline HCl (Zoloft) 50 mg PO QDAY [facility] Last Admin: 04/19/18 10:28 Dose: 50 mg Documented by: Sodium Chloride (Sodium Chloride Flush Syringe 10 Ml) 10 ml IV PRN PRN PRN Reason: LINE FLUSH Topiramate (Topamax) 50 mg PO BID [facility] Last Admin: 04/19/18 10:27 Dose: 50 mg Documented by: Review of Systems Neurological: vertigo Physical Examination - Vital Signs Vital Signs: Vital Signs Temp Pulse Resp BP Pulse Ox 97.8 F 64 16 129/43 96 04/18/18 09:36 04/18/18 09:36 04/18/18 09:36 04/18/18 09:36 04/18/18 09:36 - Constitutional General appearance: comfortable - EENT EENT: Present: mucous membranes moist - Respiratory Respiratory: Present: lungs clear - Cardiovascular Cardiovascular: Present: regular rate - Neurologic Cranial nerve examination: PERRL, EOMI, V1/V2/V3 grossly intact, face symmetric, tongue midline Speech examination: intact Sensorimotor examination: intact Motor examination - right side: 5/5: biceps, triceps, wrist flexion, wrist extension, powered bridge specialist, hip flexors, knee extensors, dorsiflexion, toe extension (EHL), plantarflexion Motor examination - left side: 5/5: biceps, triceps, wrist flexion, wrist extension, powered bridge specialist, hip flexors, knee extensors, dorsiflexion, toe extension (EHL), plantarflexion Detailed sensory examination: intact Reflexes: 0: ankle, bicep, knee, tricep - Assessment Assessment Interval: Baseline - Level of Consciousness 1a. Level of Consciousness: alert/keenly responsive - LOC Questions 1b. LOC Questions: answers both correctly - LOC Command 1c. LOC Commands: performs tasks correctly - Best Gaze 2. Best Gaze: normal - Visual 3. Visual: no visual loss - Facial Palsy 4. Facial Palsy: normal symmetrical movement - Motor Arm 5b. Motor Arm Right: no drift - Motor Leg 6a. Motor Leg Left: no drift - Limb Ataxia 7. Limb Ataxia: absent - Sensory 8. Sensory: normal - Best Language 9. Best Language: no aphasia - Dysarthria 10. Dysarthria: normal - Extinction and Inattention 11. Extinction/Inattention: no abnormality Results - Laboratory Findings CBC and BMP: 04/18/18 11:17 04/18/18 11:17 Abnormal Lab Findings: Abnormal Labs 04/18/18 04/18/18 04/19/18 11:17 14:08 07:18 POC Glucose 129 H Albumin 3.7 L Triglycerides TSH 6.750 H 04/19/18 07:18 POC Glucose Albumin Triglycerides 174 H TSH - Diagnostic Findings Additional findings: MRI Brain - microangiopathic changes, nothing acute Pt has intracrnial R ICA 7 mm aneurysm Assessment and Plan This is a 72 YO F with dizziness, now resolved and R ICA intracranial aneurysm Recommend: Pt needs neurosurgical evaluation for the aneurysm. If she can not be seen here would consult the neurosurgeons at [place] for transfer. Continue care for all medical issues as you are doing Keep BP as close to normal range as possible Bowel regimen to avoid constipation POC discussed with the patient and her daughter at bedside. Pt also has a familial tremor, incidental finding, says her dad had it, not bothering her would not treat. Please call if there are questions.
--- NOTE | 2018-04-19 23:55 | Progress Note ---
Assessment and Plan Assessment and plan: 72F who pw with difficulty walking, and not feeling herself -MRI neg for acute cva, only shows old lacunar infarct -MR shows cerebral aneurysm -neuro consult appreciated, needs transfer to [place] for Neurosurg eval -xanax for anxiety BID Diagnosis Cerebral aneursym anxiety disorder hx of CVA History Interval history: Review of systems Constitutional: No fevers, no malaise, no joint pains CVS: No chest pain, no orthopnea, no dyspnea on exertion, no pedal edema GI: No abdominal pain, no diarrhea, no vomiting, no constipation Respiratory: No shortness of breath, no wheezing, no coughing Hospitalist Physical - Physical exam Narrative exam: General.: Appears well, no distress, nontoxic HEENT: Moist mucous membranes, extraocular muscles intact, no lymphadenopathy Neck: supple Cardiac: S1-S2 heard Lungs: clear to auscultation bilaterally Abdomen: soft , nontender, nondistended, bowel sounds positive Extremities: no edema clubbing or cyanosis Skin: no rash or lesions Neurologic: no gross focal deficits Psych: calm, and cooperative - Constitutional Vitals: Temp Pulse Resp BP Pulse Ox 98.6 F 59 L 17 124/46 98 04/19/18 20:18 04/19/18 20:18 04/19/18 20:18 04/19/18 20:18 04/19/18 20:18 General appearance: Present: mild distress Results - Labs CBC & Chem 7: 04/18/18 11:17 04/18/18 11:17 Labs: Laboratory Last Values WBC 5.9 K/mm3 (4.5-11.0) 04/18/18 11:17 RBC 4.12 M/mm3 (3.65-5.03) 04/18/18 11:17 Hgb 12.2 gm/dl (10.1-14.3) 04/18/18 11:17 Hct 37.1 % (30.3-42.9) 04/18/18 11:17 MCV 90 fl (79-97) 04/18/18 11:17 MCH 30 pg (28-32) 04/18/18 11:17 MCHC 33 % (30-34) 04/18/18 11:17 RDW 13.8 % (13.2-15.2) 04/18/18 11:17 Plt Count 147 K/mm3 (140-440) 04/18/18 11:17 Lymph % (Auto) 26.1 % (13.4-35.0) 04/18/18 11:17 [place] % (Auto) 6.7 % (0.0-7.3) 04/18/18 11:17 Eos % (Auto) 2.6 % (0.0-4.3) 04/18/18 11:17 Baso % (Auto) 1.3 % (0.0-1.8) 04/18/18 11:17 Lymph # 1.5 K/mm3 (1.2-5.4) 04/18/18 11:17 Mora # 0.4 K/mm3 (0.0-0.8) 04/18/18 11:17 Eos # 0.2 K/mm3 (0.0-0.4) 04/18/18 11:17 Baso # 0.1 K/mm3 (0.0-0.1) 04/18/18 11:17 Seg Neutrophils % 63.3 % (40.0-70.0) 04/18/18 11:17 Seg Neutrophils # 3.7 K/mm3 (1.8-7.7) 04/18/18 11:17 PT 13.7 Sec. (12.2-14.9) 04/18/18 11:17 INR 0.99 (0.87-1.13) 04/18/18 11:17 APTT 31.0 Sec. (24.2-36.6) 04/18/18 11:17 Sodium 142 mmol/L (137-145) 04/18/18 11:17 Potassium 4.8 mmol/L (3.6-5.0) 04/18/18 11:17 Chloride 102.9 mmol/L (98-107) 04/18/18 11:17 Carbon Dioxide 27 mmol/L (22-30) 04/18/18 11:17 Anion Gap 17 mmol/L 04/18/18 11:17 BUN 12 mg/dL (7-17) 04/18/18 11:17 Creatinine 1.0 mg/dL (0.7-1.2) 04/18/18 11:17 Estimated GFR 55 ml/min 04/18/18 11:17 BUN/Creatinine Ratio 12 % 04/18/18 11:17 Glucose 99 mg/dL (65-100) 04/18/18 11:17 POC Glucose 89 (70-105) 04/19/18 21:16 Calcium 9.2 mg/dL (8.4-10.2) 04/18/18 11:17 Total Bilirubin 0.30 mg/dL (0.1-1.2) 04/18/18 11:17 AST 19 units/L (5-40) 04/18/18 11:17 ALT 12 units/L (7-56) 04/18/18 11:17 Alkaline Phosphatase 122 units/L (35-129) 04/18/18 11:17 Troponin T < 0.010 ng/mL (0.00-0.029) 04/18/18 11:17 Total Protein 7.6 g/dL (6.3-8.2) 04/18/18 11:17 Albumin 3.7 g/dL (3.9-5) L 04/18/18 11:17 Albumin/Globulin Ratio 0.9 % 04/18/18 11:17 Triglycerides 174 mg/dL (2-149) H 04/19/18 07:18 Cholesterol 160 mg/dL (50-199) 04/19/18 07:18 LDL Cholesterol Direct 94 mg/dL (50-130) 04/19/18 07:18 HDL Cholesterol 48 mg/dL (40-59) 04/19/18 07:18 Cholesterol/HDL Ratio 3.33 % 04/19/18 07:18 TSH 6.750 mlU/mL (0.270-4.200) H 04/19/18 07:18 Free T4 1.12 ng/dL (0.76-1.46) 04/19/18 07:18 Urine Color Yellow (Yellow) 04/18/18 13:21 Urine Turbidity Clear (Clear) 04/18/18 13:21 Urine pH 7.0 (5.0-7.0) 04/18/18 13:21 Ur Specific [place] 1.013 (1.003-1.030) 04/18/18 13:21 Urine Protein <15 mg/dl mg/dL (Negative) 04/18/18 13:21 Urine Glucose (UA) Neg mg/dL (Negative) 04/18/18 13:21 Urine Ketones Neg mg/dL (Negative) 04/18/18 13:21 Urine Blood Neg (Negative) 04/18/18 13:21 Urine Nitrite Neg (Negative) 04/18/18 13:21 Urine Bilirubin Neg (Negative) 04/18/18 13:21 Urine Urobilinogen < 2.0 mg/dL (<2.0) 04/18/18 13:21 Ur Leukocyte Esterase Tr (Negative) 04/18/18 13:21 Urine WBC (Auto) 5.0 /HPF (0.0-6.0) 04/18/18 13:21 Urine RBC (Auto) 2.0 /HPF (0.0-6.0) 04/18/18 13:21 U Epithel Cells (Auto) 2.0 /HPF (0-13.0) 04/18/18 13:21 Urine Mucus Few /HPF 04/18/18 13:21 Nutrition/Malnutrition Assess - Dietary Evaluation Nutrition/Malnutrition Findings: Nutrition Notes Start: 04/19/18 13:49 Freq: Status: Active Protocol: Document 04/19/18 13:49 HILARY (Rec: 04/19/18 14:05 HILARY [email or web address]) Co-Sign 04/19/18 13:49 NHALL Nutrition Notes 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 screened for history of difficulty chewing. 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 Pt. stated she does have trouble chewing and prefers to consume a mechanical soft diet. Pt denied N/V and constipation. Pt. stated she experiences diarrhea on and off. Burn Absent Trauma Absent GI Symptoms Diarrhea Current % PO Poor (25-49%) #1 Nutrition Diagnosis Inadequate oral intake Etiology Decreased appetite, chewing difficulty As Evidenced by Signs and Symptoms Pt. report, missing teeth Is patient on ventilator? Yes Is Patient Ambulatory and/or Out of Bed No REE-([place] Jeor-confined to bed) 1435.152 Calculation Used [facility]ations [facility] Additional Notes Pro needs: 68-82g/day (1-1.2 g /kg BW) Fluid needs: 1 ml/kcal Nutrition Intervention Change Diet Order: Mechanical soft with cardiac modification Add Supplement/Snack (indicate name/kcal Ensure Enlive daily /protein ) Provides kCal: 350 Provides Protein (gm) 20 Goal #1 Diet Advancement Anticipated Discharge Needs: Unknown at this time Follow-Up By: 04/21/18 Additional Comments F/u for diet advancement, need for ONS
[2018-04-20] MEDS: ASPIRIN PO SCH (10:40)
[2018-04-20] MEDS: LASIX PO SCH (10:40)
[2018-04-20] MEDS: DITROPAN PO SCH ×2 (10:40→15:07)
[2018-04-20] MEDS: THERAGRAN Tab PO SCH (10:40)
[2018-04-20] MEDS: K-DUR PO SCH (10:42)
[2018-04-20] MEDS: ABILIFY PO SCH (10:42)
[2018-04-20] MEDS: TOPAMAX PO SCH (10:42)
[2018-04-20] MEDS: PEPCID PO SCH (10:42)
[2018-04-20] MEDS: ZOLOFT PO SCH (10:43)
[2018-04-20] MEDS: XANAX PO SCH (10:43)
[2018-04-20] MEDS: LOPRESSOR PO SCH (10:43)
--- NOTE | 2018-04-20 11:12 | Progress Note ---
Assessment and Plan Assessment and plan: 72F who pw with difficulty walking, and not feeling herself -MRI neg for acute cva, only shows old lacunar infarct -MR shows cerebral aneurysm -neuro consult appreciated, needs transfer to [place] for Neurosurg eval -xanax for anxiety BID -TSH is elevated, optimize synthroid dose Diagnosis Cerebral aneursym anxiety disorder hx of CVA hypothyroidism History Interval history: Review of systems Constitutional: No fevers, no malaise, no joint pains CVS: No chest pain, no orthopnea, no dyspnea on exertion, no pedal edema GI: No abdominal pain, no diarrhea, no vomiting, no constipation Respiratory: No shortness of breath, no wheezing, no coughing Hospitalist Physical - Physical exam Narrative exam: General.: Appears well, no distress, nontoxic HEENT: Moist mucous membranes, extraocular muscles intact, no lymphadenopathy Neck: supple Cardiac: S1-S2 heard Lungs: clear to auscultation bilaterally Abdomen: soft , nontender, nondistended, bowel sounds positive Extremities: no edema clubbing or cyanosis Skin: no rash or lesions Neurologic: no gross focal deficits Psych: calm, and cooperative - Constitutional Vitals: Temp Pulse Resp BP Pulse Ox 98.6 F 68 20 134/55 97 04/20/18 08:04 04/20/18 08:04 04/20/18 08:04 04/20/18 08:04 04/20/18 08:04 General appearance: Present: mild distress Results - Labs CBC & Chem 7: 04/18/18 11:17 04/18/18 11:17 Labs: Laboratory Last Values WBC 5.9 K/mm3 (4.5-11.0) 04/18/18 11:17 RBC 4.12 M/mm3 (3.65-5.03) 04/18/18 11:17 Hgb 12.2 gm/dl (10.1-14.3) 04/18/18 11:17 Hct 37.1 % (30.3-42.9) 04/18/18 11:17 MCV 90 fl (79-97) 04/18/18 11:17 MCH 30 pg (28-32) 04/18/18 11:17 MCHC 33 % (30-34) 04/18/18 11:17 RDW 13.8 % (13.2-15.2) 04/18/18 11:17 Plt Count 147 K/mm3 (140-440) 04/18/18 11:17 Lymph % (Auto) 26.1 % (13.4-35.0) 04/18/18 11:17 [place] % (Auto) 6.7 % (0.0-7.3) 04/18/18 11:17 Eos % (Auto) 2.6 % (0.0-4.3) 04/18/18 11:17 Baso % (Auto) 1.3 % (0.0-1.8) 04/18/18 11:17 Lymph # 1.5 K/mm3 (1.2-5.4) 04/18/18 11:17 [place] # 0.4 K/mm3 (0.0-0.8) 04/18/18 11:17 Eos # 0.2 K/mm3 (0.0-0.4) 04/18/18 11:17 Baso # 0.1 K/mm3 (0.0-0.1) 04/18/18 11:17 Seg Neutrophils % 63.3 % (40.0-70.0) 04/18/18 11:17 Seg Neutrophils # 3.7 K/mm3 (1.8-7.7) 04/18/18 11:17 PT 13.7 Sec. (12.2-14.9) 04/18/18 11:17 INR 0.99 (0.87-1.13) 04/18/18 11:17 APTT 31.0 Sec. (24.2-36.6) 04/18/18 11:17 Sodium 142 mmol/L (137-145) 04/18/18 11:17 Potassium 4.8 mmol/L (3.6-5.0) 04/18/18 11:17 Chloride 102.9 mmol/L (98-107) 04/18/18 11:17 Carbon Dioxide 27 mmol/L (22-30) 04/18/18 11:17 Anion Gap 17 mmol/L 04/18/18 11:17 BUN 12 mg/dL (7-17) 04/18/18 11:17 Creatinine 1.0 mg/dL (0.7-1.2) 04/18/18 11:17 Estimated GFR 55 ml/min 04/18/18 11:17 BUN/Creatinine Ratio 12 % 04/18/18 11:17 Glucose 99 mg/dL (65-100) 04/18/18 11:17 POC Glucose 89 (70-105) 04/19/18 21:16 Calcium 9.2 mg/dL (8.4-10.2) 04/18/18 11:17 Total Bilirubin 0.30 mg/dL (0.1-1.2) 04/18/18 11:17 AST 19 units/L (5-40) 04/18/18 11:17 ALT 12 units/L (7-56) 04/18/18 11:17 Alkaline Phosphatase 122 units/L (35-129) 04/18/18 11:17 Troponin T < 0.010 ng/mL (0.00-0.029) 04/18/18 11:17 Total Protein 7.6 g/dL (6.3-8.2) 04/18/18 11:17 Albumin 3.7 g/dL (3.9-5) L 04/18/18 11:17 Albumin/Globulin Ratio 0.9 % 04/18/18 11:17 Triglycerides 174 mg/dL (2-149) H 04/19/18 07:18 Cholesterol 160 mg/dL (50-199) 04/19/18 07:18 LDL Cholesterol Direct 94 mg/dL (50-130) 04/19/18 07:18 HDL Cholesterol 48 mg/dL (40-59) 04/19/18 07:18 Cholesterol/HDL Ratio 3.33 % 04/19/18 07:18 TSH 6.750 mlU/mL (0.270-4.200) H 04/19/18 07:18 Free T4 1.12 ng/dL (0.76-1.46) 04/19/18 07:18 Urine Color Yellow (Yellow) 04/18/18 13:21 Urine Turbidity Clear (Clear) 04/18/18 13:21 Urine pH 7.0 (5.0-7.0) 04/18/18 13:21 Ur Specific Pitcher 1.013 (1.003-1.030) 04/18/18 13:21 Urine Protein <15 mg/dl mg/dL (Negative) 04/18/18 13:21 Urine Glucose (UA) Neg mg/dL (Negative) 04/18/18 13:21 Urine Ketones Neg mg/dL (Negative) 04/18/18 13:21 Urine Blood Neg (Negative) 04/18/18 13:21 Urine Nitrite Neg (Negative) 04/18/18 13:21 Urine Bilirubin Neg (Negative) 04/18/18 13:21 Urine Urobilinogen < 2.0 mg/dL (<2.0) 04/18/18 13:21 Ur Leukocyte Esterase Tr (Negative) 04/18/18 13:21 Urine WBC (Auto) 5.0 /HPF (0.0-6.0) 04/18/18 13:21 Urine RBC (Auto) 2.0 /HPF (0.0-6.0) 04/18/18 13:21 U Epithel Cells (Auto) 2.0 /HPF (0-13.0) 04/18/18 13:21 Urine Mucus Few /HPF 04/18/18 13:21 Nutrition/Malnutrition Assess - Dietary Evaluation Nutrition/Malnutrition Findings: Nutrition Notes Start: 04/19/18 13 :49 Freq: Status: Active Protocol: Document 04/19/18 13:49 HILARY (Rec: 04/19/18 14:05 HILARY [email or web address]) Co-Sign 04/19/18 13:49 NHALL Nutrition Notes 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 screened for history of difficulty chewing. Pt. said her appetite [facility] was good until Tuesday when she started to not feel well. Pt. stated she does have trouble chewing and prefers to consume a mechanical soft diet. Pt denied N/V and constipation. Pt. stated she experiences diarrhea on and off. Burn Absent Trauma Absent GI Symptoms Diarrhea Current % PO Poor (25-49%) #1 Nutrition Diagnosis Inadequate oral intake Etiology Decreased appetite, chewing difficulty As Evidenced by Signs and Symptoms Pt. report, missing teeth Is patient on ventilator? Yes Is Patient Ambulatory and/or Out of Bed No REE-([place]-St. Jeor-confined to bed) 1435.152 Calculation Used for Recommendations [place] Jeor Additional Notes Pro needs: 68-82g/day (1-1.2 g /kg BW) Fluid needs: 1 ml/kcal Nutrition Intervention Change Diet Order: Mechanical soft with cardiac modification Add Supplement/Snack (indicate name/kcal Ensure Enlive daily /protein ) Provides kCal: 350 Provides Protein (gm) 20 Goal #1 Diet Advancement Anticipated Discharge Needs: Unknown at this time Follow-Up By: 04/21/18 Additional Comments F/u for diet advancement, need for ONS
[2018-04-20] MEDS: TYLENOL PO PRN (12:23)
--- NOTE | 2018-04-20 16:41 | Discharge Summary ---
Providers - Providers Date of Admission: 04/18/18 14:15 Attending physician: BRIAN JOY MD 04/18/18 14:15 Occupational Therapy Evaluate and Treat [CONS] Routine Comment: Reason For Exam: Neuro deficits Physical Therapy Evaluation and Treat [CONS] Routine Comment: Reason For Exam: Neuro deficits 04/18/18 14:18 Speech Therapy Evaluation and Treat [CONS] Routine Reason For Exam: swallow eval 04/18/18 20:24 Consult to Wound/ET Nurse [CONS] Routine Reason For Exam: wound eval 04/18/18 21:01 Consult to Physician [CONS] Routine Comment: Consulting Provider: ERIKA OHARA Physician Instructions: Reason For Exam: cva Primary care physician: PATHOLOGY SECRETARY Hospitalization Condition: Stable Hospital course: 72F who pw with difficulty walking, and not feeling herself, her symptoms are most likely due to anxiety, as they resolved with Xanax -MRI neg for acute cva, only shows old lacunar infarct -MR shows 7mm aneurysm in ICA -neuro consult appreciated, -Discussed with neurosurgery at [place]. per neurosurgeon she has a nonruptured incidental intracerebral aneurysm. He recommends outpatient follow-up with a vascular neurosurgeon -xanax for anxiety BID -TSH is elevated, optimized synthroid dose Diagnosis Cerebral aneursym anxiety disorder hx of CVA hypothyroidism Disposition: DC-01 TO HOME OR SELFCARE Time spent for discharge: 33 mins Core Measure Documentation - Palliative Care Palliative Care/ Comfort Measures: Not Applicable - Core Measures Any of the following diagnoses?: none Exam - Constitutional Vitals: Temp Pulse Resp BP Pulse Ox 97.9 F 64 18 146/63 94 04/20/18 11:31 04/20/18 11:31 04/20/18 11:31 04/20/18 11:31 04/20/18 11:31 General appearance: Present: no acute distress, well-nourished - EENT Eyes: Present: PERRL ENT: hearing intact, clear oral mucosa - Neck Neck: Present: supple, normal ROM - Respiratory Respiratory effort: normal Respiratory: bilateral: CTA - Cardiovascular Heart Sounds: Present: S1 & S2. Absent: rub, click - Extremities Extremities: pulses symmetrical, No edema Peripheral Pulses: within normal limits - Abdominal General gastrointestinal: Present: soft, non-tender, non-distended, normal bowel sounds Female genitourinary: Present: normal - Integumentary Integumentary: Present: clear, warm, dry - Musculoskeletal Musculoskeletal: gait normal, strength equal bilaterally - Psychiatric Psychiatric: appropriate mood/affect, intact judgment & insight - Neurologic Neurologic: CNII-XII intact, moves all extremities Plan Additional Instructions: You need to see a vascular neurosurgeon in [facility] to evaluate your brain aneurysm. Please call [phone] to set up appointment with either Dr Huff, Dr Gregg or Dr Mazariegos Follow up with: PRIMARY CARE, [Primary Care Provider] - 3-5 Days Prescriptions: ALPRAZolam [Xanax TAB] 1 mg PO BID #14 tablet Levothyroxine [Synthroid] 100 mcg PO DAILY@0600 #30 tablet
[2018-04-20 16:44] VITALS: BP 107/49
[2018-04-21] MEDS ORDERED: SYNTHROID PO SCH (06:00)
[2018-04-21] MEDS ORDERED: NON-FORMULARY (Cholecalciferol (Vitamin D3) [Vitamin D3] 5,000 UNIT) PO SCH (10:00)
[2018-04-21] MEDS ORDERED: VITAMIN D3 PO SCH (10:00)
[2018-04-25] MEDS ORDERED: VITAMIN D2 PO SCH (10:00)
== END 2018-04-20 19:13 | disposition home or self-care (01) | DRG 92 ==
LOC: ED 09:03 → 4A 14:15
PROVIDERS: ADMIT Internal Medicine; ATTEND Internal Medicine
DX: I67.1 Cerebral aneurysm, nonruptured (principal); J44.1 Chronic obstructive pulmonary disease with (acute) exacerbation; G45.9 Transient cerebral ischemic attack, unspecified; I10 Essential (primary) hypertension; E03.9 Hypothyroidism, unspecified; G43.909 Migraine, unspecified, not intractable, without status migrainosus; F41.9 Anxiety disorder, unspecified; E78.5 Hyperlipidemia, unspecified; Z82.49 Family history of ischemic heart disease and other diseases of the circulatory system; Z90.710 Acquired absence of both cervix and uterus; Z98.49 Cataract extraction status, unspecified eye; Z79.82 Long term (current) use of aspirin; Z79.899 Other long term (current) drug therapy
CPT/HCPCS: 36415; 70450; 70544; 70551; 71045; 80053; 80061; 81001; 82962; 84439; 84443; 84484; 85025; 85610; 85730; 93005; 93010; 93306; 93880; 94760; G0378; A9270-GY